=== PATIENT | male | born 1995 | race African-American/Black ===

== ENCOUNTER 2016-09-01 00:42 | Inpatient (IN) | payer MEDICAID ==
[2016-09-01 01:41] LABS: Urine Bacteria Absent (Absent); Urine Bilirubin Negative (Negative); Urine Glucose Negative (Negative); Urine Nitrite Negative (Negative)
[2016-09-01 01:53] LABS: Hematocrit 43 % (42-52); Mean Corpuscular HGB Conc 32 g/dl (31-36); Mean Corpuscular Hemoglobin 27 pg (27-31); Mean Corpuscular Volume 85 fL (80-94); Mean Platelet Volume 9 um3 (7.4-10.4); Red Blood Count 5.09 10^6/ul (4.0-5.4); Red Cell Distribution Width 13 % (10.5-15); White Blood Count 8.5 10^3/ul (3.5-10.8)
[2016-09-01 01:54] LABS: Benzodiazepine Urine Screen None Detected (None Detect)
[2016-09-01 02:06] LABS: ALT 22 U/L (7-52); AST 28 U/L (13-39); Albumin 4.8 g/dL (3.2-5.2); Alkaline Phosphatase 66 U/L (34-104); Anion Gap 12 mmol/L (2-11); BUN/Creatinine Ratio 11.3 (8-20); Blood Urea Nitrogen 12 mg/dL (6-24); CO2 Carbon Dioxide 22 mmol/L (22-32); Chloride 101 mmol/L (101-111); EGFR African American 112.4 (>60); EGFR Non-African American 87.4 (>60); Globulin 3.1 g/dL (2-4); Glucose 91 mg/dL (70-100); Potassium 3.7 mmol/L (3.5-5.0); Sodium 135 mmol/L (133-145); Total Protein 7.9 g/dL (6.4-8.9)
[2016-09-01 02:07] LABS: Acetaminophen < 15 mcg/mL; Alcohol < 10 mg/dL (<10); Salicylate < 2.50 mg/dL (<30)
[2016-09-01 02:17] LABS: TSH (Thyroid Stimulating Horm) 3.25 mcIU/mL (0.34-5.60)
[2016-09-01] MEDS ORDERED: Acetaminophen TAB* 325 MG PO PRN (07:05)
[2016-09-01] MEDS ORDERED: Al Hydrox/Mg Hydrox/Simet LIQ* 30 ML UDC PO PRN (07:05)
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
[2016-09-03 08:02] VITALS: BP 125/76
--- NOTE | 2016-09-03 13:52 | PN ---
MHU: Group Therapy Note - Service Type Service Type: 29490 Group Psychotherapy - Cognitive Behavioral Group Therapy ( CBT):Patient was attentive and participatory in CBT programming this morning, and remained in good behavioral control. Patient expressed positive insights regarding relevant treatment interventions and goals.
--- NOTE | 2016-09-03 23:59 | DS ---
DISCHARGE SUMMARY: DATE OF ADMISSION: 09/01/16 DATE OF DISCHARGE: 09/03/16 DISCHARGE DIAGNOSES: [place] I: Adjustment disorder with depressed mood. [place] II: Deferred. [place] III: None. [place] IV: Severe primary support stressors. [place] V: At the time of admission was 50 and at the time of discharge was 60. CONDITION AT THE TIME OF DISCHARGE: Stable. The patient continues to deny suicidal ideations and h as done so throughout his hospitalization. He has been safe on all checks. 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 It should be noted that the [place] [employer] has come to his dorm room and removed the noose that he had fasenrique oned in his backpack, they have also taken a knife that he had as well as some sleeping pills that brandon neri had bought over the counter. The patient was agreeable with public safety doing this and he is st eadfastly denying any thoughts of harming himself. The patient is agreeable with outpatient treatme nt at this time. The acute stressor leading to this admission was a recent conflict with his girlfr iend. He has since spoken with her on the phone and resolved matters and wants to move forward on a n outpatient basis. We see no legal justification to keep the patient any further and I see no willis iers to him receiving treatment effectively in the outpatient setting. MENTAL STATUS EXAMINATION: The patient is a young overweight male with a garland, who is c lean and well groomed, wearing a T-shirt and slacks. He is calm, cooperative, has good posture and makes good eye contact. Speech is highly articulate with normal rate, tone, and volume. Mood is eu thymic with a full affect. Thought process is linear and goal directed. Thought content is signifi cant for his desire to leave the hospital. He denies suicidal or homicidal ideations. He denies au ditory or visual hallucinations. Insight and judgment appeared to be fair given his willingness to follow up with outpatient treatment services at [facility] here in [place]. Cogni tively, he is awake and alert with what would appear to be an average intellect. DISCHARGE INSTRUCTIONS: To the patient are as follows: A. Medications: None. B. Diet: Regular. C. Activities: As tolerated. The patient is a nonsmoker. There are no laboratory or diagnostic s tudies pending at the time of discharge. D. Followup care: The patient will follow up within 1 week at the [facility] on [facility] here in [place], [place]. HOSPITAL COURSE: Part-A. 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 The patient was minimizing t owards suicidal ideations and denied that he had any intention of harming himself; however, when we spoke with his friend Ronak, Perry made us aware that the patient has been very stressed about his relationship with his current girlfriend and that he had been making several statements to the effec t that the only thing in his life that made it worth living was his current relationship. Apparentl y on night, he was joking more than usual about suicide. He actually showed Ronak a noo se that he had fashioned and placed inside of his backpack. He also asked questions about how long it would take oneself to if they were to hang themselves. The patient's friend confronted him a bout this talk and later that evening the patient appeared to turn back to his baseline, telling his friend that he was not going to kill himself that night. Ronak accepted this account but states that he spent the rest of the night periodically checking their balcony to make sure that the patie nt was not hanging himself. The following day, on 08/31/16, they went for a walk together a nd it did not appear that the patient had any issues at that time; however, later in the evening, Claude villanueva received a text from the patient indicating that he was feeling worse. The patient indicated that he wanted to sleep and share with his friend that he had purchased a bottle of sleeping pills at a local convenience store. He also posted what was described as a "goodbye note" on Facebook and according to Ronak, he posted a plan to kill himself by overdosing. Ronak was concerned enou philip to go back to the patient's dorm and confront him yet again, at which time the patient seemed to joke that he would take the sleeping pills and that [place] public safety team would have to be kahlil led and then pump his stomach to resuscitate him. At that point, he was brought to the hospital. T he patient does not necessarily deny the account of his friend other than the Facebook posting, keya taylor he states was not a suicide note, but rather a simple posting stating "thank you to every one" titi beena that he was thanking people who had recently been helping him in his life. He did indicate mikey t he has been feeling more depressed over the recent several days following 2 separate fights with brandon denson girlfrienvane, both on Saturday and Saturday leading up to the weekend of admission. At the point th at we initially evaluated him; however, he stated that he was not suicidal at all and that he felt e xtremely bad for how his statements had made his friends feel. He did indicate that he had a long h istory of transient depression and anxiety mostly related to relationships in his life and that when he gets extremely stressed he will have very brief and fleeting thoughts of suicides. He states th at his way of coping with this is making jokes about suicide, which he had admitted doing with his f riend, Ronak. 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 He further indicated that even prior to this episode he was considering getting help through campus mental health services and that he would like to be discharged so that he could continue wit h this. Part-B. Psychiatric treatment rendered: The patient was admitted to the Adult Behavioral Health [facility] where he was placed on q.15-minute checks for his own safety. After a thorough mental status binta luation and history taking, this clinician did not feel that the patient had any diagnosable primary mental illness other than an acute adjustment disorder following the fight with his girlfriend. We treated him conservatively with milieu activities such as group and individual psychotherapy. The p panchito was engaged throughout his process with us, was often seen talking to staff and peers. He wa s visited by several friends on the unit who expressed support and we were able to contact his boss at work, a woman named Karin Caldwell, who indicated that the harmful effects had been removed from his dorm room including the noose, the sleeping pills, and the knife. She indicated that she felt that the patient was at his baseline. It is notable that we had no contact with the patient's family as he refused to sign release of information stating that his family is not particularly savvy about m ental health issues and that it would likely be only a cause of stigma for him were he to reveal mikey t he had been admitted here over the weekend. At any rate, he continues to deny suicidal ideations at this time and he is agreeable with following up on an outpatient basis, which we feel is a more a ppropriate setting for continued care. [id number]/[facility] #: [id number]
== END 2016-09-03 16:00 | disposition home or self-care (01) | DRG 754 ==
LOC: ED 00:42 → BSU 06:26
PROVIDERS: ADMIT Psychiatry & Neurology Psychiatry; ATTEND Psychiatry & Neurology Psychiatry
DX: F43.21 Adjustment disorder with depressed mood (principal); R45.851 Suicidal ideations; Z81.8 Family history of other mental and behavioral disorders
CPT/HCPCS: 36415; 80053; 80307; 80320; 80329; 81003; 81015; 84443; 85025; 90853; 99222; 99238; G0480

== ENCOUNTER 2017-02-02 03:36 | Emergency (ER) | payer MEDICAID, OTHER ==
[2017-02-02 04:24] LABS: Hematocrit 41 % (42-52); Hemoglobin 13.3 g/dl (14.0-18.0); Mean Corpuscular HGB Conc 33 g/dl (31-36); Mean Corpuscular Hemoglobin 27 pg (27-31); Mean Corpuscular Volume 84 fL (80-94); Mean Platelet Volume 8 um3 (7.4-10.4); Red Blood Count 4.87 10^6/ul (4.0-5.4); Red Cell Distribution Width 14 % (10.5-15); White Blood Count 8.6 10^3/ul (3.5-10.8)
[2017-02-02 04:39] LABS: ALT 23 U/L (7-52); AST 21 U/L (13-39); Acetaminophen < 15 mcg/mL; Albumin 4.5 g/dL (3.2-5.2); Alcohol 93 mg/dL (<10); Alkaline Phosphatase 82 U/L (34-104); Anion Gap 6 mmol/L (2-11); BUN/Creatinine Ratio 11.7 (8-20); Blood Urea Nitrogen 11 mg/dL (6-24); CO2 Carbon Dioxide 29 mmol/L (22-32); Calcium 9.3 mg/dL (8.6-10.3); Chloride 104 mmol/L (101-111); EGFR African American 129.1 (>60); EGFR Non-African American 100.4 (>60); Glucose 116 mg/dL (70-100); Potassium 4.1 mmol/L (3.5-5.0); Salicylate < 2.50 mg/dL (<30); Sodium 139 mmol/L (133-145); Total Protein 7.5 g/dL (6.4-8.9)
[2017-02-02 04:54] LABS: TSH (Thyroid Stimulating Horm) 1.83 mcIU/mL (0.34-5.60)
--- NOTE | 2017-02-02 06:47 | ED ---
Bay James Stephanie, scribed for Darrius Allen on 02/02/17 at 0408 . Psychiatric Complaint - HPI Summary HPI Summary: Pt is a 21 y/o M presenting to the ED after stating that he wanted to kill himself while intoxicated. The pt stated his idea of self-harm to his co-worker who called campus police. Symptoms include mild nausea. Pt currently denies SI. - History Of Current Complaint Chief Complaint: EDMentalHealth Time Seen by Provider: 02/02/17 03:45 Hx Obtained From: Patient Onset/Duration: Resolved Timing: Hours Related History: Positive For: Prior Psychiatric Issues - depressed Recent Stressor(s): College final exams - Allergies/Home Medications Allergies/Adverse Reactions: Allergies Allergy/AdvReac Type Severity Reaction Status Date / Time No Known Allergies Allergy Verified 09/01/16 12:03 PMH/Surg Hx/FS Hx/Imm Hx Sensory History: Denies: Hx Contacts or Glasses, Hx Hearing Aid Opthamlomology History: Denies: Hx Contacts or Glasses EENT History: Denies: Hx Deafness Psychiatric History: Reports: Hx Anxiety, Hx Depression Denies: Hx Eating Disorder Infectious Disease History: No Infectious Disease History: Denies: Traveled Outside the [place] in Last 30 Days - Social History Alcohol Use: None Substance Use Type: Reports: None Smoking Status (MU): Never Smoked Tobacco Review of Systems Negative: Fever Positive: Anxious, Depressed All Other Systems Reviewed And Are Negative: Yes Physical Exam - Summary Physical Exam Summary: Appearance: Well appearing, no pain distress Skin: warm, dry, reflects adequate perfusion Head/face: normal Eyes: EOMI, THELMA ENT: normal Neck: supple, non-tender Respiratory: CTA, breath sounds present Cardiovascular: RRR, pulses symmetrical Abdomen: non-tender, soft Bowel: present Musculoskeletal: normal, strength/ROM intact Neuro: normal, sensory motor intact, A&Ox3 Psychological: anxious and depressed affect Triage Information Reviewed: Yes Vital Signs On Initial Exam: Initial Vitals Temp Pulse Resp BP Pulse Ox 97.8 F 76 16 141/78 100 02/02/17 03:39 02/02/17 03:39 02/02/17 03:39 02/02/17 03:39 02/02/17 03:39 Vital Signs Reviewed: Yes Diagnostics - Vital Signs Vital Signs Temp Pulse Resp BP Pulse Ox 02/02/17 03:39 97.8 F 76 16 141/78 100 - Laboratory Lab Results: Lab Results 02/02/17 02/02/17 Range/Units 04:12 04:12 WBC 8.6 (3.5-10.8) 10^3/ul RBC 4.87 (4.0-5.4) 10^6/ul Hgb 13.3 L (14.0-18.0) g/dl Hct 41 L (42-52) % MCV 84 (80-94) fL MCH 27 (27-31) pg MCHC 33 (31-36) g/dl RDW 14 (10.5-15) % Plt Count 304 (150-450) 10^3/ul MPV 8 (7.4-10.4) um3 Neut % (Auto) 72.0 (38-83) % Lymph % (Auto) 17.5 L (25-47) % Elmore % (Auto) 8.0 (1-9) % Eos % (Auto) 2.0 (0-6) % Baso % (Auto) 0.5 (0-2) % Absolute Neuts (auto) 6.2 (1.5-7.7) 10^3/ul Absolute Lymphs (auto) 1.5 (1.0-4.8) 10^3/ul Absolute Monos (auto) 0.7 (0-0.8) 10^3/ul Absolute Eos (auto) 0.2 (0-0.6) 10^3/ul Absolute Basos (auto) 0 (0-0.2) 10^3/ul Absolute Nucleated RBC 0 10^3/ul Nucleated RBC % 0 Sodium 139 (133-145) mmol/L Potassium 4.1 (3.5-5.0) mmol/L Chloride 104 (101-111) mmol/L Carbon Dioxide 29 (22-32) mmol/L Anion Gap 6 (2-11) mmol/L BUN 11 (6-24) mg/dL Creatinine 0.94 (0.67-1.17) mg/dL Est GFR ( Amer) 129.1 (>60) Est GFR (Non-Af Amer) 100.4 (>60) BUN/Creatinine Ratio 11.7 (8-20) Glucose 116 H (70-100) mg/dL Calcium 9.3 (8.6-10.3) mg/dL Total Bilirubin 0.30 (0.2-1.0) mg/dL AST 21 (13-39) U/L ALT 23 (7-52) U/L Alkaline Phosphatase 82 (34-104) U/L Total Protein 7.5 (6.4-8.9) g/dL Albumin 4.5 (3.2-5.2) g/dL Globulin 3.0 (2-4) g/dL Albumin/Globulin Ratio 1.5 (1-3) TSH 1.83 (0.34-5.60) mcIU/mL Salicylates < 2.50 (<30) mg/dL Acetaminophen < 15 mcg/mL Serum Alcohol 93 H (<10) mg/dL Result Diagrams: 02/02/17 04:12 02/02/17 04:12 Lab Statement: Any lab studies that have been ordered have been reviewed, and results considered in the medical decision making process. Course/Dx - Course Course Of Treatment: Pt is signed out to Dr. Chaudhari pending mental health evaluation. - Differential Dx/Clinical Impression Provider Diagnosis: Abdominal pain Discharge - Discharge Plan Condition: Stable Disposition: OTHER Discharge Disposition Comment: signed out Patient Education Materials: Abdominal Pain (ED) Referrals: Tomas Vasquez MD [Primary Care Provider] - The documentation as recorded by the [facility] edwards Stephanie accurately reflects the service I personally performed and the decisions made by Tiffany atkinson Emmanuel.
[2017-02-02 07:19] VITALS: BP 138/74
[2017-02-02 07:38] LABS: Benzodiazepine Urine Screen None Detected (None Detect)
[2017-02-02 07:43] LABS: Urine Bacteria Absent (Absent); Urine Bilirubin Negative (Negative); Urine Glucose Negative (Negative); Urine Nitrite Negative (Negative)
== END 2017-02-02 09:15 ==
LOC: ED 03:36
DX: R10.9 Unspecified abdominal pain (principal); R11.0 Nausea; F41.8 Other specified anxiety disorders; R45.851 Suicidal ideations
CPT/HCPCS: 36415; 80053; 80307; 80320; 80329; 81003; 81015; 84443; 85025; 99284; G0480

== ENCOUNTER 2017-08-22 23:31 | Emergency (ER) | payer OTHER ==
[2017-08-22 23:43] VITALS: BP 135/82
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
--- NOTE | 2017-08-23 07:24 | RAD ---
INDICATION: Left femoral injury COMPARISON: Left hip same date TECHNIQUE: AP and lateral views were obtained. FINDINGS: The bony structures, joint spaces, and soft tissues are normal for age. The examination is reviewed along with the left hip series which better demonstrates the proximal femur IMPRESSION: NEGATIVE EXAMINATION.
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
== END 2017-08-23 00:52 | disposition home or self-care (01) ==
LOC: ED 23:31
DX: M25.552 Pain in left hip (principal)
CPT/HCPCS: 99282